=== PATIENT | male | born 1995 | race Caucasian/White ===

== ENCOUNTER 2016-08-04 15:50 | Emergency (ER) | payer OTHER ==
[2016-08-04 16:13] VITALS: BP 145/50
--- NOTE | 2016-08-04 18:08 | ED ---
Head Injury - HPI Summary HPI Summary: Patient has a history of vasovagal syndrome. He was picking at a pimple last night when he passed out from the pain of squeezing the area. He hit his lip when he fell and has an abrasion to his upper lip. He denies vomiting, neck pain or amnesia around the event. He does not have a headache, but he felt a little lethargic today and wonders if he has a concussion. He denies vision changes, tooth or jaw pain. He was able to attend his classes today and perform all activities without deficit or difficulty. - History Of Current Complaint Chief Complaint: EDHeadInjury Stated Complaint: SYNCOPE, HIT HEAD Time Seen by Provider: 08/04/16 16:19 Hx Obtained From: Patient Mechanism Of Injury: Fall From A Standing Position Onset/Duration: Started Days Ago - 1 Onset of Pain: Post Accident Severity Currently: Mild Severity Initially: Mild Pain Intensity: 3 Location of Head Injury: Other: - upper lip Character: Dull Associated Signs And Symptoms: Negative - Allergies/Home Medications Allergies/Adverse Reactions: Allergies Allergy/AdvReac Type Severity Reaction Status Date / Time Penicillins Allergy Hives Verified 08/04/16 16:13 Home Medications: Home Medications NK [No Home Medications Reported] 08/04/16 [History Confirmed 08/04/16] PMH/Surg Hx/FS Hx/Imm Hx Endocrine/Hematology History: Denies: Hx Anticoagulant Therapy, Hx Diabetes, Hx Thyroid Disease Cardiovascular History: Denies: Hx Congestive Heart Failure, Hx Deep Vein Thrombosis, Hx Hypertension , Hx Myocardial Infarction, Hx Pacemaker/ICD Respiratory History: Denies: Hx Asthma, Hx Chronic Obstructive Pulmonary Disease (COPD), Hx Lung Cancer, Hx Pneumonia, Hx Pulmonary Embolism GI History: Denies: Hx Gall Bladder Disease, Hx Gastrointestinal Bleed, Hx Ulcer, Hx Urosepsis History: Denies: Hx Kidney Stones, Hx Renal Disease Neurological History: Reports: Other Neuro Impairments/Disorders - vasovagal syndrome with pain Denies: Hx Dementia, Hx Migraine, Hx Seizures, Hx Transient Ischemic Attacks (TIA) Psychiatric History: Denies: Hx Anxiety, Hx Depression, Hx Schizophrenia, Hx Bipolar Disorder - Surgical History Surgery Procedure, Year, and Place: WISDOM TEETH Infectious Disease History: Denies: Traveled Outside the [place] in Last 30 Days - Family History Known Family History: Positive: Diabetes Negative: Cardiac Disease, Hypertension, Renal Disease, Seizure Disorder - Social History Occupation: Student Lives: Alone Alcohol Use: Weekly Substance Use Type: Reports: Marijuana Substance Use Comment - Amount & Last Used: EVERY COUPLE DAYS Smoking Status (MU): Current Some Day Smoker Cessation Counseling: Patient Advised to Stop Review of Systems Negative: Photophobia, Blurred Vision, Diplopia Negative: Dental Pain Positive: Other - abrasion to upper lip Negative: Headache, Weakness, Paresthesia, Numbness All Other Systems Reviewed And Are Negative: Yes Physical Exam Triage Information Reviewed: Yes Vital Signs On Initial Exam: Initial Vitals Temp Pulse Resp BP Pulse Ox 98.2 F 64 16 145/50 98 08/04/16 16:08 08/04/16 16:08 08/04/16 16:08 08/04/16 16:08 08/04/16 16:08 Vital Signs Reviewed: Yes Appearance: Positive: Well-Appearing, Well-Nourished, Pain Distress - minimal discomfort to upper lip Skin: Positive: Warm, Skin Color Reflects Adequate Perfusion, Dry, Soft Head/Face: Positive: Other - 2mm abrasion to right upper lip; no swelling or bruising Eyes: Positive: EOMI, ANDERSON, Conjunctiva Clear ENT: Positive: Hearing grossly normal, Pharynx normal, TMs normal Neck: Positive: Supple, Nontender Respiratory/Lung Sounds: Positive: Breath Sounds Present Cardiovascular: Positive: RRR Musculoskeletal: Positive: Strength/ROM Intact. Negative: Edema Left, Edema Right Neurological: Positive: Sensory/Motor Intact, Alert, Oriented to Person Place, Time, CN Intact II-III, NV Bundle Intact Distally, Normal Gait Psychiatric: Positive: Affect/Mood Appropriate AVPU Assessment: Alert Diagnostics - Vital Signs Vital Signs Temp Pulse Resp BP Pulse Ox 08/04/16 16:08 98.2 F 64 16 145/50 98 - Laboratory Lab Statement: Any lab studies that have been ordered have been reviewed, and results considered in the medical decision making process. Head Injury Course/Dx - Diagnoses Differential Diagnosis/HQI/PQRI: Cerebral Contusion, Cervical Sprain, Contusion , Hematoma, Laceration, Nasal Fracture, Skull Fracture Provider Diagnoses: Abrasion, Head injury Discharge - Discharge Plan Condition: Stable Disposition: HOME Patient Education Materials: Head Injury (ED) Forms: *School Release Referrals: [facility] [Outside] No Primary Care Phys,NOPCP [Primary Care Provider] - Additional Instructions: Please follow-up with Jodi if your symptoms persist. Use 600mg of ibuprofen three times daily with meals for the next 3-5 days. Return to the emergency department if symptoms worsen.
== END 2016-08-04 18:17 | disposition home or self-care (01) ==
LOC: ED 15:50
DX: S00.91XA Abrasion of unspecified part of head, initial encounter (principal); S09.90XA Unspecified injury of head, initial encounter; W19.XXXA Unspecified fall, initial encounter; Y93.9 Activity, unspecified; Y92.9 Unspecified place or not applicable; R55 Syncope and collapse
CPT/HCPCS: 99281

== ENCOUNTER 2017-08-11 11:03 | Emergency (ER) | payer OTHER ==
[2017-08-11 14:33] VITALS: BP 101/54
--- NOTE | 2017-08-11 15:11 | UC ---
Throat Pain/Nasal Shimon HPI - HPI Summary HPI Summary: Pt presents with sinus pain/pressure/congestion that started 2 days ago. He is going out of town to [place] tomorrow and is worried that this wont get better. He has not taken anything for his symptoms. He is also requesting STD testing. He says he has no symptoms and has not engaged in unprotected sex - but it "has been awhile" since he was checked. Denies fevers, chills, cough, SOB, chest pain, abdominal pain, n/v/d/c, dysuria , hematuria, or penile discharge - History of Current Complaint Chief Complaint: UCRespiratory Stated Complaint: RESP ISSUE Time Seen by Provider: 08/11/17 15:05 Hx Obtained From: Patient Onset/Duration: Gradual Onset Pain Intensity: 0 - Allergies/Home Medications Allergies/Adverse Reactions: Allergies Allergy/AdvReac Type Severity Reaction Status Date / Time Penicillins Allergy Hives Verified 08/11/17 14:24 Home Medications: Home Medications Fluticasone NASAL SPRAY 50MCG* [Flonase NASAL SPRAY 50MCG*] 1 spray BOTH NARES DAILY 08/11/17 [History Confirmed 08/11/17] LoraTADine TAB(NF) [Claritin 10 MG TAB(NF)] 10 mg PO DAILY 08/11/17 [History Confirmed 08/11/17] PMH/Surg Hx/FS Hx/Imm Hx Previously Healthy: Yes Other History Of: Negative For: HIV, Hepatitis B, Hepatitis C, Anticoagulant Therapy - Surgical History Surgical History: None Surgery Procedure, Year, and Place: WISDOM TEETH - Family History Known Family History: Positive: Diabetes Negative: Cardiac Disease, Hypertension, Renal Disease, Seizure Disorder - Social History Occupation: Student Lives: With Family Alcohol Use: Weekly Alcohol Amount: 4x day Substance Use Type: Marijuana Substance Use Comment - Amount & Last Used: 2 days ago, uses occassionally Smoking Status (MU): Current Some Day Smoker Review of Systems Constitutional: Negative Skin: Negative Eyes: Negative ENT: Nasal Discharge, Sinus Congestion, Sinus Pain/Tenderness Respiratory: Negative Cardiovascular: Negative Gastrointestinal: Negative Genitourinary: Negative Neurological: Negative Psychological: Negative All Other Systems Reviewed And Are Negative: Yes Physical Exam Triage Information Reviewed: Yes Appearance: Well-Appearing, No Pain Distress, Well-Nourished Vital Signs: Initial Vital Signs Temp 98.6 F 08/11/17 14:26 Pulse 66 08/11/17 14:26 Resp 18 08/11/17 14:26 BP 101/54 08/11/17 14:26 Pulse Ox 98 08/11/17 14:26 Vital Signs Reviewed: Yes Eyes: Positive: Conjunctiva Clear. Negative: Conjunctiva Inflamed, Discharge ENT: Positive: Hearing grossly normal, Pharynx normal, Nasal congestion, TMs normal, Sinus tenderness, Uvula midline. Negative: Pharyngeal erythema, Nasal drainage, TM bulging, TM dull, TM red, Tonsillar swelling, Tonsillar exudate, Hoarse voice Neck: Positive: Supple, Nontender, No Lymphadenopathy Respiratory: Positive: Chest non-tender, Lungs clear, Normal breath sounds, No respiratory distress, No accessory muscle use Cardiovascular: Positive: RRR, No Murmur, Pulses Normal Neurological: Positive: Alert Psychological: Positive: Age Appropriate Behavior Skin: Negative: rashes Throat Pain/Nasal Course/Dx - Course Course Of Treatment: Sinusitis. STD testing for HIV, RPR, GC, and hepatitis - Differential Dx/Diagnosis Provider Diagnoses: Sinusitis. STD testing Discharge - Discharge Plan Condition: Stable Disposition: HOME Prescriptions: Azithromycin TAB* [Zithromax TAB (Z-INDIO) 250 mg #6 tabs] 2 tab PO .TODAY, THEN 1 DAILY #1 indio Patient Education Materials: Sinusitis (ED) Referrals: No Primary Care Phys,NOPCP [Primary Care Provider] - Additional Instructions: If you develop a fever, shortness of breath, chest pain, new or worsening symptoms - please call your PCP or go to the ED.
--- NOTE | 2017-08-13 08:09 | UC ---
- Progress Note Progress Note: pls call pt and inform of negative syphilis, neg Hep panel and neg HIV results
== END 2017-08-11 16:00 | disposition home or self-care (01) ==
LOC: UCEAST 11:03
DX: J32.9 Chronic sinusitis, unspecified (principal); Z11.3 Encounter for screening for infections with a predominantly sexual mode of transmission; Z11.4 Encounter for screening for human immunodeficiency virus [HIV]; Z88.0 Allergy status to penicillin; F12.90 Cannabis use, unspecified, uncomplicated; Z72.0 Tobacco use
CPT/HCPCS: 36415; 80074; 86592; 86703; 87491; 87502; 87591; 99212; G0463